=== PATIENT | male | born 1975 | race Caucasian/White ===

== ENCOUNTER 2021-02-03 16:51 | Emergency (ER) | payer SELFPAY ==
[~2021-02-03] VITALS: Ht 165.1 cm; Wt 75.0 kg
[2021-02-03] MEDS ORDERED: ONDANSETRON HCL 4MG/2ML INJ IV STA (17:35)
[2021-02-03] MEDS ORDERED: VISCOUS LIDOCAINE 2% 15 ML UDC PO ONE (17:45)
[2021-02-03] MEDS ORDERED: MAGNESIUM/ALUMINUM HYDROXIDE/SIMETHICONE 30ML UDC PO ONE (17:45)
[2021-02-03] MEDS ORDERED: SODIUM CHLORIDE 0.9% 1,000 ML IV ONE (17:45)
[2021-02-03 17:59] LABS: BASOPHILS % 0.6 % (0.0-2.0); EOSINOPHILS % 0.1 % (0.0-5.0); HEMATOCRIT. 48.5 % (42.0-52.0); HEMOGLOBIN. 16.8 g/dL (14.0-18.0); LYMPHOCYTES % 33.9 % (20.0-50.0); MEAN CORPUSCULAR HEMOGLOBIN 32.8 pg (28.0-32.0); MEAN CORPUSCULAR VOLUME 94.9 fL (80.0-94.0); MEAN PLATELET VOLUME 7.8 fl (7.4-10.4); MONOCYTES % 5.4 % (2.0-8.0); PLATELET 281 x1000/uL (130-400); RED BLOOD CELL COUNT 5.11 mill/uL (4.7-6.1); RED CELL DISTRIBUTION WIDTH 13.4 % (11.6-14.6)
[2021-02-03 18:06] LABS: CHLORIDE 104 mEq/L (98-107)
[2021-02-03 18:09] LABS: ETHANOL BLOOD 233 mg/dL
[2021-02-04] MEDS ORDERED: FAMOTIDINE 20MG TABLET PO SCH (00:15)
[2021-02-04] MEDS ORDERED: FAMO-135 MT (00:45)
[2021-02-04 00:59] VITALS: BP 143/93
== END 2021-02-04 01:06 | disposition home or self-care (01) ==
LOC: ER 16:51
DX: R07.89 Other chest pain (principal); F10.129 Alcohol abuse with intoxication, unspecified; Y90.7 Blood alcohol level of 200-239 mg/100 ml; R00.0 Tachycardia, unspecified; Z63.4 Disappearance and death of family member; Z63.0 Problems in relationship with spouse or partner
CPT/HCPCS: 36415; 71045; 80053; 80320; 83690; 84484; 85025; 93005; 96361; 96374; 99285; J2405; J7030; G0480

== ENCOUNTER 2021-02-04 02:22 | Emergency (ER) | payer SELFPAY ==
[~2021-02-04] VITALS: Ht 170.2 cm; Wt 74.0 kg
[~2021-02-04 02:22] MED LIST: FAMO-135 MT
[2021-02-04 02:26] VITALS: BP 140/67
[2021-02-04] MEDS ORDERED: MAGNESIUM/ALUMINUM HYDROXIDE/SIMETHICONE 30ML UDC PO ONE (03:15)
[2021-02-04] MEDS ORDERED: VISCOUS LIDOCAINE 2% 15 ML UDC MM PRN (03:15)
[2021-02-04] MEDS ORDERED: FAMOTIDINE 20MG TABLET PO ONE (03:15)
== END 2021-02-04 05:03 | disposition home or self-care (01) ==
LOC: ER 02:22
DX: K29.70 Gastritis, unspecified, without bleeding (principal); I10 Essential (primary) hypertension
CPT/HCPCS: 36415; 84484; 99284